=== PATIENT | female | born 1975 | race Caucasian/White ===

== ENCOUNTER 2022-06-23 14:24 | Inpatient (IN) | payer BC ==
[2022-06-23] MEDS ORDERED: SODIUM CHLORIDE 0.9% 1,000 ML IV STA (14:38)
[2022-06-23] MEDS: ONDANSETRON 4 MG/2 ML VIAL IVP ONE ×2 (14:52→14:55)
[2022-06-23 15:12] LABS: ALT 71 U/L (4-34); AST 164 U/L (14-36); African American GFR (CKD) >90 (>60 ml/min/1.73 sqM); Albumin 4.2 g/dL (3.5-5.0); Alkaline Phosphatase 81 U/L (38-126); Anion Gap 18 mmol/L; Blood Urea Nitrogen 7 mg/dL (7-17); Calcium 8.4 mg/dL (8.4-10.2); Carbon Dioxide 17 mmol/L (22-30); Chloride 104 mmol/L (98-107); Glucose 97 mg/dL (74-99); Lipase 255 U/L (23-300); Magnesium 1.6 mg/dL (1.6-2.3); Non-African American GFR(CKD) >90 (>60 ml/min/1.73 sqM); Potassium 3.3 mmol/L (3.5-5.1); Sodium 139 mmol/L (137-145); Total Bilirubin 0.7 mg/dL (0.2-1.3); Total Protein 7.3 g/dL (6.3-8.2)
[2022-06-23 15:14] LABS: Partial Thromboplastin Time 24.3 sec (22.0-30.0); Prothrombin Time 10.9 sec (9.0-12.0)
[2022-06-23 15:15] LABS: Alcohol 288 mg/dL
[2022-06-23 15:18] LABS: HCT 40.7 % (34.0-46.0); HGB 14.2 gm/dL (11.4-16.0); MCH 35.9 pg (25.0-35.0); MCHC 34.9 g/dL (31.0-37.0); MCV 102.9 fL (80.0-100.0); Macrocytosis Slight; Mean Platelet Volume 8.2; Platelet Count 170 k/uL (150-450); RBC 3.95 m/uL (3.80-5.40); RDW 12.3 % (11.5-15.5); WBC 3.6 k/uL (3.8-10.6)
[2022-06-23] MEDS ORDERED: POTASSIUM CHLORIDE ER 20 MEQ TAB.ER PO STA (15:20)
--- NOTE | 2022-06-23 15:21 | XR ---
EXAMINATION TYPE: XR chest 2V DATE OF EXAM: 06/23/2022 COMPARISON: NONE TECHNIQUE: PA and lateral views submitted. HISTORY: Hypertension, chest pain FINDINGS: The lungs are clear and there is no pneumothorax, pleural effusion, or focal pneumonia. Right size is normal with no overt failure. IMPRESSION: 1. No acute process.
--- NOTE | 2022-06-23 15:25 | ED ---
Chest Pain HPI - General Chief Complaint: Chest Pain Stated Complaint: chest pain, hypertension Time Seen by Provider: 06/23/22 14:30 Source: patient, RN notes reviewed Mode of arrival: EMS Limitations: no limitations - History of Present Illness Initial Comments: 46-year-old female with a history of psoriatic arthritis who presents with EMS today with complaints of a lightheaded tired and shaky today she states she had nausea vomiting upon awaking this morning she had anterior chest pain for like a brick on her chest she points to both upper costal sternal margins as well as a xiphoid area. She had no fevers chills sweats. He does admit to smoking and also states she consumes a couple beers or a glass wine at night. Per paramedics the patient did demonstrate on monitoring a brief episode of wide complex tachycardia which resolves spontaneously. MD Complaint: chest pain - Related Data Home Medications Medication Instructions Recorded Confirmed Etanercept [Enbrel Mini] 50 mg SQ WE 06/23/22 06/23/22 Magnesium Chloride [Slow-Mag] 64 mg PO Q30D 06/23/22 06/23/22 Rfm-Yfiw-Thrkg Acid 1 cap PO DAILY 06/23/22 06/23/22 [-U Capsule (formulary)] Allergies Allergy/AdvReac Type Severity Reaction Status Date / Time No Known Allergies Allergy Verified 06/23/22 15:54 Review of Systems ROS Statement: Those systems with pertinent positive or pertinent negative responses have been documented in the HPI. ROS Other: All systems not noted in ROS Statement are negative. EKG Findings - EKG Results: EKG: interpreted by ERMD, sinus rhythm (EKG interpreted by me shows sinus rhythm a 79 a CO interval 155 QRS congregational 87 QT since QTC of 423/457 evidence of LVH poor R-wave progression no apparent acute ST-T wave changes.) Past Medical History Additional Past Medical History / Comment(s): Measles, chicken pox, herpes. History of Any Multi-Drug Resistant Organisms: None Reported Past Surgical History: Section, Hernia Repair, Orthopedic Surgery Past Psychological History: No Psychological Hx Reported Smoking Status: Current every day smoker Past Alcohol Use History: Daily, Heavy Past Drug Use History: None Reported General Exam - General Exam Comments Initial Comments: This is a well up well-nourished awake alert oriented 4 female Limitations: no limitations General appearance: alert, anxious Head exam: Present: atraumatic, normocephalic, normal inspection Eye exam: Present: normal appearance, PERRL, EOMI. Absent: scleral icterus, conjunctival injection, periorbital swelling ENT exam: Present: mucous membranes dry Neck exam: Present: normal inspection, full ROM, other (No stridor. Bruits). Absent: tenderness, meningismus, lymphadenopathy Respiratory exam: Present: normal lung sounds bilaterally. Absent: respiratory distress, wheezes, rales, rhonchi, stridor Cardiovascular Exam: Present: regular rate, normal rhythm, normal heart sounds. Absent: systolic murmur, diastolic murmur, rubs, gallop, clicks GI/Abdominal exam: Present: soft, normal bowel sounds. Absent: distended, tenderness, guarding, rebound, rigid, bruit, pulsatile mass Extremities exam: Present: normal inspection, full ROM, normal capillary refill. Absent: tenderness, pedal edema, joint swelling, calf tenderness Back exam: Present: normal inspection Neurological exam: Present: alert, oriented X3, CN II-XII intact Psychiatric exam: Present: normal affect, normal mood Skin exam: Present: warm, dry, intact, normal color. 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 I did discuss the case with Dr. Miller who did come the emergency department as well as with Dr. Shelley from cardiology. Patient be admitted with serial enzymes. She also in addition to potassium supplementation will get magnesium supplement. I did discuss this with her and her family. She denies any chance being at this time. She does have a implant. Disposition Clinical Impression: Atypical chest pain, Wide-complex tachycardia, Alcohol intoxication Disposition: ADMITTED IP TO THIS [facility] Condition: Fair Referrals: Nonstaff,Physician [Primary Care Provider] - 1-2 days Decision Date: 06/23/22 Decision Time: 17:55
[2022-06-23 15:39] LABS: Lymphocytes # (M) 0.83 k/uL (1.0-4.8); Monocytes # (M) 0.79 k/uL (0-1.0); Neutrophils # (M) 1.98 k/uL (1.3-7.7); Neutrophils % (M) 55 %; Nucleated Red Blood Cells 0 /100 WBC (0-0); Total Cells Counted 100
[2022-06-23] MEDS ORDERED: THIAMINE 100 MG/ML 2 ML VIAL IM STA ×2 (17:42→17:59)
[2022-06-23] MEDS ORDERED: NALOXONE 0.4 MG/ML 1 ML VIAL IV PRN (17:55)
[2022-06-23] MEDS: MAGNESIUM SULFATE-D5W PMX 1 GM in DEXTROSE/WATER 1 100ML.BAG IVPB SCH ×2 (18:06→21:39)
[2022-06-23] MEDS ORDERED: LORazepam 2 MG/ML INJ IV PRN ×2 (19:54)
[2022-06-23] MEDS: LORazepam 2 MG/ML INJ IV PRN (20:30)
--- NOTE | 2022-06-23 23:56 | HP ---
HISTORY AND PHYSICAL CHIEF COMPLAINT: Chest pain. HISTORY OF PRESENT ILLNESS: This 46-year-old woman with a past medical history of measles and chickenpox, and herpes, being followed by primary physician in [place], was visiting family. The patient had chest pain in the anterior part of chest and the patient had wide-complex tachycardia. The patient was admitted for further evaluation and treatment. There is no history of any fever, rigors, or chills at this time. PAST MEDICAL HISTORY: Reviewed and include measles, chickenpox, and herpes. HOME MEDICATIONS: Reviewed and include vitamins, doses are reviewed. ALLERGIES: None. FAMILY HISTORY: No history of heart diseases or strokes in the family. SOCIAL HISTORY: History of alcohol. REVIEW OF SYSTEMS: A 14-point review of systems is negative except as mentioned earlier. PHYSICAL EXAMINATION: VITAL SIGNS: Pulse is 72, blood pressure 130/70, respirations 18. HEENT: Conjunctivae normal. NECK: No JVD. CARDIOVASCULAR: S1, S2. RESPIRATION: Breath sounds diminished at the bases. ABDOMEN: Soft, nontender. LEGS: No edema. NERVOUS SYSTEM: No focal deficits. SKIN: No ulcer, rash, or bleeding. JOINTS: No active deforming arthropathy. LABORATORY DATA: Reviewed. ASSESSMENT: 1. Chest pain for evaluation. 2. Wide-complex QRS tachycardia. 3. EtOH. 4. Elevated AST and ALT. 5. History of section. RECOMMENDATIONS: In this 46-year-old woman, who presented with multiple complex medical issues, we will monitor the patient closely. Continue with current medications. CIWA protocol. Otherwise, Cardiology consultation. Prognosis is guarded because of multiple complex medical issues. We will check the lytes. 2D echo with Doppler. Further recommendations to follow. MMODL / IJN: [id number] /
[2022-06-24 00:49] LABS: ALT 62 U/L (4-34); AST 128 U/L (14-36); African American GFR (CKD) >90 (>60 ml/min/1.73 sqM); Albumin 3.4 g/dL (3.5-5.0); Alkaline Phosphatase 65 U/L (38-126); Anion Gap 6 mmol/L; Blood Urea Nitrogen 5 mg/dL (7-17); Calcium 7.6 mg/dL (8.4-10.2); Carbon Dioxide 23 mmol/L (22-30); Chloride 104 mmol/L (98-107); Glucose 73 mg/dL (74-99); Magnesium 2.1 mg/dL (1.6-2.3); Non-African American GFR(CKD) >90 (>60 ml/min/1.73 sqM); Potassium 3.2 mmol/L (3.5-5.1); Sodium 133 mmol/L (137-145); Total Bilirubin 1.1 mg/dL (0.2-1.3); Total Protein 6.1 g/dL (6.3-8.2)
[2022-06-24 01:50] LABS: Glucose,Whole Blood 78 mg/dL (70-110)
[2022-06-24] MEDS: LORazepam 2 MG/ML INJ IV PRN ×3 (01:51→06:03)
[2022-06-24] MEDS ORDERED: Potassium Replacement Protocol 1 EACH MISC MISCELLANE PRN (02:05)
[2022-06-24] MEDS ORDERED: METOPROLOL TARTRATE 50 MG TAB PO SCH (02:05)
[2022-06-24] MEDS: POTASSIUM BICARBONATE/CIT AC 20 MEQ TABLET.EFF NG-TUBE SCH ×2 (02:32→03:55)
[2022-06-24] MEDS: METOPROLOL TARTRATE 5 MG/5 ML VIAL IVP SCH ×3 (02:32→02:48)
[2022-06-24 03:04] VITALS: TEMP 98.3
[2022-06-24] MEDS ORDERED: hydrALAZINE HCL 20 MG/ML 1 ML VIAL IVP PRN (05:48)
[2022-06-24] MEDS ORDERED: VALSARTAN 160 MG TAB PO SCH (07:00)
[2022-06-24] MEDS ORDERED: carvediloL 6.25 MG TAB PO SCH (07:30)
--- NOTE | 2022-06-24 07:47 | P.CRDCN ---
History of Present Illness History of present illness: This is Dr. Shelley dictating a consult on this patient The patient was interviewed and examined IMPRESSION / ASSESSMENT: Increase serum alcohol levels Elevated blood pressure readings Increased voltage of QRS and twelve-lead EKG Wide-complex tachycardia, runs of this on the monitor consistent with atrial tachycardia with aberrancy PLAN: Management of alcohol withdrawal per primary care physician Start carvedilol 6.25 mg twice daily and maximize for management of atrial tachycardia with aberrancy as well as elevated blood pressure readings Start valsartan 160 mg twice daily Monitor electrolytes and replace accordingly 2-D echo and Doppler study to assess LV function Avoid QT prolonging drugs, more recent twelve-lead EKGs in the chart show the QT interval is between 470-490, absolute value Keep potassium greater than 4 and magnesium greater than 2 Continue oral magnesium, likely intracellular deficit HPI All at night regarding wide complex tachycardia, recurrent episodes by the nurse results I treated her with IV metoprolol 5 mg for 3 doses followed by 50 mg by mouth me toprolol Subsequently her white complex tachycardia has subsided However she was also noted to be hypertensive and was prescribed IV hydralazine by the internal medicinepractitioner with a mild reduction in blood pressures Her serum alcohol level was 288 Beta-hCG was undetectable 3 troponins are normal TSH was low normal at 0.63 Renal function is normal She had a low potassium and magnesium She has had abnormal AST and ALT The AST is greater than 2 times the ALT D-dimer normal WBC count low Hemoglobin normal She has received potassium replacement and IV magnesium Patient states that over the last one year she has noted that her blood pressure has been high She denies any diabetes or prediabetes She lives in [place] and 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 EXAMINATION: Blood pressure was elevated between 170-200 mmHg systolic and diastolics were between 95-105 mmHg Normal heart sounds no murmurs or gallops Chest wall tenderness noted Lungs are clear no rhonchi no crackles She is alert and answering all questions at this time she looks comfortable sitting in bed REVIEW OF LABS, ECG & MEDICAL DATA Chest x-ray was normal First EKG showed sinus rhythm normal OR narrow QRS with increased voltage and secondary changes been feeling leads Poor R-wave progression Subsequent twelve-lead EKG show QT prolongation Past Medical History Additional Past Medical History / Comment(s): Measles, chicken pox, genital herpes. History of Any Multi-Drug Resistant Organisms: None Reported Past Surgical History: Section, Hernia Repair, Orthopedic Surgery Additional Past Surgical History / Comment(s): Right foot nerve release, abdom inal hernia repair as Past Anesthesia/Blood Transfusion Reactions: No Reported Reaction Past Psychological History: No Psychological Hx Reported Smoking Status: Current every day smoker, Light tobacco smoker Past Alcohol Use History: Daily, Heavy Past Drug Use History: None Reported - Past Family History Father Family Medical History: Coronary Artery Disease (CAD), Rheumatoid Arthritis (RA) Mother Family Medical History: CVA/TIA, Rheumatoid Arthritis (RA) Medications and Allergies Home Medications Medication Instructions Recorded Confirmed Type Etanercept [Enbrel Mini] 50 mg SQ WE 06/23/22 06/23/22 History Magnesium Chloride [Slow-Mag] 64 mg PO Q30D 06/23/22 06/23/22 History Kcv-Vbrs-Nutzj Acid 1 cap PO DAILY 06/23/22 06/23/22 History [-U Capsule (formulary)] Allergies Allergy/AdvReac Type Severity Reaction Status Date / Time No Known Allergies Allergy Verified 06/23/22 15:54 Physical Exam Vitals: Vital Signs Temp Pulse Pulse Pulse Resp BP BP 06/24/22 04:25 169/82 06/24/22 03:57 203/107 06/24/22 03:01 98.3 F 72 16 184/99 06/24/22 02:47 192/103 06/24/22 02:41 187/98 06/24/22 02:30 199/100 06/24/22 02:15 181/100 06/24/22 02:00 198/115 06/24/22 01:50 211/110 06/23/22 23:12 98.4 F 86 16 160/84 06/23/22 19:56 98.7 F 84 18 183/108 06/23/22 18:32 97.9 F 72 18 163/90 06/23/22 17:15 98 F 72 18 138/71 06/23/22 14:38 84 06/23/22 14:26 97.8 F 79 18 179/96 Pulse Ox 06/24/22 04:25 06/24/22 03:57 06/24/22 03:01 95 06/24/22 02:47 06/24/22 02:41 06/24/22 02:30 06/24/22 02:15 06/24/22 02:00 06/24/22 01:50 06/23/22 23:12 98 06/23/22 19:56 97 06/23/22 18:32 98 06/23/22 17:15 99 06/23/22 14:38 06/23/22 14:26 98 Intake and Output 06/23/22 06/24/22 06/24/22 22:59 06:59 14:59 Intake Total 400 Balance 400 Intake: Intake, IV Titration 100 Amount Magnesium Sulfate-D5w Pmx 100 1 gm In Dextrose/Water 1 100ml.bag @ 100 mls/hr IVPB Q1H [facility] Rx#: [id number] Oral 300 Other: Voiding Method Toilet Toilet # Voids 3 # Bowel Movements 0 Weight 58.06 kg Results 06/23/22 14:38 06/23/22 23:51 Cardiac Enzymes 06/23/22 06/23/22 06/23/22 Range/Units 14:38 14:38 18:38 AST 164 H (14-36) U/L Troponin I <0.012 <0.012 (0.000-0.034) ng/mL 06/23/22 06/23/22 Range/Units 21:44 23:51 AST 128 H (14-36) U/L Troponin I <0.012 (0.000-0.034) ng/mL Coagulation 06/23/22 Range/Units 14:38 PT 10.9 (9.0-12.0) sec APTT 24.3 (22.0-30.0) sec CBC 06/23/22 Range/Units 14:38 WBC 3.6 L (3.8-10.6) k/uL RBC 3.95 (3.80-5.40) m/uL Hgb 14.2 (11.4-16.0) gm/dL Hct 40.7 (34.0-46.0) % Plt Count 170 (150-450) k/uL Comprehensive Metabolic Panel 06/23/22 06/23/22 Range/Units 14:38 23:51 Sodium 139 133 L (137-145) mmol/L Potassium 3.3 L 3.2 L (3.5-5.1) mmol/L Chloride 104 104 (98-107) mmol/L Carbon Dioxide 17 L 23 (22-30) mmol/L BUN 7 5 L (7-17) mg/dL Creatinine 0.66 0.62 (0.52-1.04) mg/dL Glucose 97 73 L (74-99) mg/dL Calcium 8.4 7.6 L (8.4-10.2) mg/dL AST 164 H 128 H (14-36) U/L ALT 71 H 62 H (4-34) U/L Alkaline Phosphatase 81 65 (38-126) U/L Total Protein 7.3 6.1 L (6.3-8.2) g/dL Albumin 4.2 3.4 L (3.5-5.0) g/dL Current Medications Generic Name Dose Route Start Last Admin Trade Name Freq PRN Reason Stop Dose Admin Carvedilol 6.25 mg 06/24/22 07:30 06/24/22 06:53 Carvedilol 6.25 Mg Tab PO 6.25 mg BID-W/MEALS [facility] Administration Lorazepam 1 mg 06/23/22 19:54 06/24/22 02:56 Lorazepam 2 Mg/Ml Inj IV 1 mg Q2HR PRN Administration CIWA 8 or 9 Lorazepam 1 mg 06/23/22 19:54 06/24/22 06:03 Lorazepam 2 Mg/Ml Inj IV 1 mg Q1HR PRN Administration CIWA 10 to 15 Lorazepam 2 mg 06/23/22 19:54 Lorazepam 2 Mg/Ml Inj IV 06/25/22 19:54 Q10M PRN CIWA 16 or higher Magnesium Oxide 400 mg 06/24/22 09:00 Magnesium Oxide 400 Mg Tab PO Q30D [facility] Miscellaneous Information 1 each 06/24/22 02:05 Potassium Replacement Protocol 1 Each Misc MISCELLANE DAILY PRN Per Protocol Protocol Multivitamins 1 each 06/24/22 09:00 Multivitamins, Thera 1 Each Tab PO DAILY [facility] Naloxone HCl 0.2 mg 06/23/22 17:55 Naloxone 0.4 Mg/Ml 1 Ml Vial IV Q2M PRN Opioid Reversal Non-Formulary Medication 50 mg 06/29/22 09:00 Etanercept [Enbrel Mini] SQ We@0900 [facility] Thiamine HCl 100 mg 06/24/22 09:00 Thiamine 100 Mg Tab PO DAILY [facility] Valsartan 160 mg 06/24/22 07:00 Valsartan 160 Mg Tab PO BID [facility] Intake and Output 06/23/22 06/24/22 06/24/22 22:59 06:59 14:59 Intake Total 400 Balance 400 Intake: Intake, IV Titration 100 Amount Magnesium Sulfate-D5w Pmx 100 1 gm In Dextrose/Water 1 100ml.bag @ 100 mls/hr IVPB Q1H [facility] Rx#: [id number] Oral 300 Other: Voiding Method Toilet Toilet # Voids 3 # Bowel Movements 0 Weight 58.06 kg 06/23/22 14:38 06/23/22 23:51
[2022-06-24 08:17] LABS: HCT 40.7 % (34.0-46.0); HGB 13.3 gm/dL (11.4-16.0); Hypochromasia Marked; MCH 37.2 pg (25.0-35.0); MCHC 32.7 g/dL (31.0-37.0); Macrocytosis Marked; Mean Platelet Volume 9.3; Platelet Count 104 k/uL (150-450); RBC 3.57 m/uL (3.80-5.40); RDW 12.6 % (11.5-15.5); WBC 4.6 k/uL (3.8-10.6)
[2022-06-24 08:20] LABS: MCV 113.9 fL (80.0-100.0)
[2022-06-24] MEDS ORDERED: THIAMINE 100 MG TAB PO SCH ×2 (09:00)
[2022-06-24] MEDS ORDERED: MULTIVITAMINS, THERA 1 EACH TAB PO SCH (09:00)
[2022-06-24] MEDS ORDERED: MAGNESIUM OXIDE 400 MG TAB PO SCH (09:00)
[2022-06-24 09:10] LABS: Lymphocytes # (M) 0.37 k/uL (1.0-4.8); Monocytes # (M) 0.46 k/uL (0-1.0); Neutrophils # (M) 3.77 k/uL (1.3-7.7); Neutrophils % (M) 82 %; Nucleated Red Blood Cells 0 /100 WBC (0-0); Total Cells Counted 100
[2022-06-24 09:55] LABS: ALT 63 U/L (4-34); AST 141 U/L (14-36); African American GFR (CKD) >90 (>60 ml/min/1.73 sqM); Albumin 3.7 g/dL (3.5-5.0); Alkaline Phosphatase 71 U/L (38-126); Anion Gap 6 mmol/L; Blood Urea Nitrogen 4 mg/dL (7-17); Calcium 7.5 mg/dL (8.4-10.2); Carbon Dioxide 24 mmol/L (22-30); Chloride 100 mmol/L (98-107); Glucose 78 mg/dL (74-99); Non-African American GFR(CKD) >90 (>60 ml/min/1.73 sqM); Potassium 3.8 mmol/L (3.5-5.1); Sodium 130 mmol/L (137-145); Total Bilirubin 1.8 mg/dL (0.2-1.3); Total Protein 6.6 g/dL (6.3-8.2)
--- NOTE | 2022-06-24 10:30 | CA ---
Transthoracic Echo Report Name: Tanna Tirado Age: 46 Gender: F : 1975 Exam Date: 06/24/2022 08:39 Exam Location: [place] [facility] Ht (in): 62 Wt (lb): 128 Ordering Physician: Noemí Miller MD Attending/Referring Phys: Product Support Rep Cande Ferro RDCS Procedure CPT: Indications: chf Cardiac Hx: Technical Quality: Contrast 1: Total Dose (mL): Contrast 2: Total Dose (mL): MEASUREMENTS (Male / Female) Normal Values 2D ECHO LV Diastolic Diameter PLAX 4.4 cm 4.2 - 5.9 / 3.9 - 5.3 cm LV Systolic Diameter PLAX 3.3 cm IVS Diastolic Thickness 1.0 cm 0.6 - 1.0 / 0.6 - 0.9 cm LVPW Diastolic Thickness 1.4 cm 0.6 - 1.0 / 0.6 - 0.9 cm LV Relative Wall Thickness 0.6 RV Internal Dim ED PLAX 2.9 cm LA Systolic Diameter LX 3.2 cm 3.0 - 4.0 / 2.7 - 3.8 cm M-MODE Aortic Root Diameter MM 2.3 cm LA Systolic Diameter MM 3.0 cm LA Ao Ratio MM 1.3 MV E Point Septal Separation 1.1 cm AV Cusp Separation MM 1.8 cm DOPPLER MV Area PHT 2.6 cm??? Mitral E Point Velocity 56.6 cm/s Mitral A Point Velocity 98.6 cm/s Mitral E to A Ratio 0.6 MV Deceleration Time 288.4 ms MV E' Velocity 4.4 cm/s Mitral E to MV E' Ratio 13.0 FINDINGS Left Ventricle Mildly increased septal wall thickness. Left ventricular systolic function is low-normal at 50% Right Ventricle The right ventricle is normal in size and function. Right ventricular systolic pressure within normal limits. Right Atrium The right atrium is normal in size. Left Atrium The left atrium is normal in size. Mitral Valve Structurally normal mitral valve without significant stenosis or prolapse. There is mild mitral regurgitation. Aortic Valve Structurally normal aortic valve without significant sclerosis or stenosis. There is no aortic regurgitation. Tricuspid Valve Structurally normal tricuspid valve without significant stenosis. Pulmonary artery systolic pressure is normal. Pulmonic Valve Structurally normal pulmonic valve without significant stenosis. There is no pulmonic regurgitation. Pericardium Normal pericardium without effusion. Aorta Normal aortic root dimension. CONCLUSIONS Low-normal left ventricular systolic function at 50% Previewed by: Dr. Jaya Lucas MD (Electronically Signed) Final Date: 24 June 2022 10:29
[2022-06-24 11:14] VITALS: BMI 22.6
[2022-06-24 12:09] VITALS: BP 149/98; PULSE 83; RESP 18
--- NOTE | 2022-06-25 01:47 | DS ---
DISCHARGE SUMMARY FINAL DIAGNOSES: 1. Chest pain, myocardial infarction ruled out. 2. Wide-complex QRS tachycardia. 3. History of ETOH. 4. Increased AST and ALT. 5. History of section. DISCHARGE DISPOSITION: The patient will be discharged in stable condition with guarded prognosis. The patient is extremely keen on going home. Cardiology cleared the patient for further evaluation and outpatient followup. HISTORY OF PRESENT ILLNESS: This 46-year-old woman was admitted with some chest pain and also wide-complex QRS tachycardia. Troponins are negative. Cardiology saw the patient. Medications are adjusted. The patient is extremely keen on going home. 2D echo was noted and Cardiology cleared the patient. Currently, the patient is symptomatic and the patient is planning to stop alcohol. PHYSICAL EXAMINATION: VITAL SIGNS: Stable. CARDIOVASCULAR: S1, S2. ABDOMEN: Soft. NERVOUS SYSTEM: No focal deficits. DISCHARGE MEDICATIONS: 1. Coreg 6.25 mg p.o. b.i.d. 2. Thiamine. 3. Valsartan 160 mg p.o. b.i.d. 4. Librium 25 mg t.i.d. Continue the rest of the home medications and follow with Primary Physician and Cardiology as recommended. Once again, the patient will be discharged again in a stable condition. Guarded prognosis. To attend AA or alcohol rehab as well. The patient understands and agrees. MMODL / IJN: [id number] /
[2022-06-29] MEDS ORDERED: ETANERCEPT 50 MG/ML SQ SCH (09:00)
== END 2022-06-24 15:12 | disposition home or self-care (01) | DRG 310 ==
LOC: EC 14:24 → 3SCARD 17:56
PROVIDERS: ADMIT Hospitalist; ATTEND Hospitalist
PROC: HZ2ZZZZ Detoxification Services for Substance Abuse Treatment (ICD-10-PCS; principal; 2022-06-23)
DX: I47.1 Supraventricular tachycardia (principal); F10.129 Alcohol abuse with intoxication, unspecified; F17.210 Nicotine dependence, cigarettes, uncomplicated; R07.89 Other chest pain; I34.0 Nonrheumatic mitral (valve) insufficiency; L40.50 Arthropathic psoriasis, unspecified; A60.09 Herpesviral infection of other urogenital tract; Z86.19 Personal history of other infectious and parasitic diseases; Y90.8 Blood alcohol level of 240 mg/100 ml or more; Z87.19 Personal history of other diseases of the digestive system; Z71.6 Tobacco abuse counseling; Z71.41 Alcohol abuse counseling and surveillance of alcoholic
CPT/HCPCS: 36415; 71046; 80053; 80320; 81025; 83690; 83735; 83880; 84443; 84484; 85025; 85379; 85610; 85730; 93005; 93306; 94760; 96361; 96365; 96372; 99285